=== PATIENT | male | born 1955 | race Caucasian/White ===

== ENCOUNTER 2020-05-18 09:52 | Outpatient (CLI) | payer MEDICARE ==
--- NOTE | 2020-05-18 11:31 | RAD ---
EXAM: XR Cerv Sp Ap Lat STANDARD DATE: 05/18/2020 10:00 AM INDICATION: Cervicalgia COMPARISON: None. FINDING: The cervical spinal the lateral projection is evaluated up to T1. There is mild disc degene rative disease most pronounced at C4-5, C5-6 and C6-7. There is mild facet osteoarthrosis at C4-5 through C7-T1. The prevertebral soft tissues are normal appearing. No acute fracture is evident. Lung apices are clear. IMPRESSION:Mild cervical spondylosis.
== END 2020-05-18 09:53 | disposition home or self-care (01) ==
LOC: SJX 09:52
PROVIDERS: ATTEND Family Medicine
DX: M54.2 Cervicalgia (principal); M47.812 Spondylosis without myelopathy or radiculopathy, cervical region
CPT/HCPCS: 72040

== ENCOUNTER 2020-05-29 14:46 | Inpatient (IN) | payer MEDICARE, OTHER ==
[2020-05-29 17:15] LABS: #Eosinphils 0.2 thou/uL (0.0-0.7); #Lymphocytes 2.3 thou/uL (1.20-3.40); #Monocytes 1.1 thou/uL (0.11-0.59); #Neutrophils 6.9 thou/uL (1.40-6.50); %Basophils 0.4 % (0.0-1.0); %Eosinophils 1.8 % (0.0-10.0); %Lymphocytes 21.6 % (21.0-51.0); %Monocytes 10.7 % (0.0-10.0); %Neutrophils 65.5 % (42.0-75.0); Hemoglobin 16.6 g/dL (14.0-18.0); Mean Corpuscular HGB CONC 34.1 g/dL (32.0-36.0); Mean Corpuscular Volume 96.9 fL (78.0-98.0); Platelet Count 340 thou/uL (130-400); RBC Distribution Width 11.8 % (11.5-14.5); Red Blood Cell (RBC) Count 5.02 mill/uL (4.70-6.10); White Blood Cell (WBC) Count 10.5 thou/uL (4.8-10.8)
[2020-05-29 17:25] LABS: INR-International Normal Ratio 0.9; PTT 26.4 sec (22.9-36.1); Prothrombin Time 12.3 sec (12.0-14.7)
--- NOTE | 2020-05-29 17:31 | CT ---
CT Brain WO Con: 05/29/2020 5:19 PM CLINICAL HISTORY: Right-sided numbness since Friday night; no history of CVA. IMAGING TECHNIQUE: Multiple CT images were obtained of the brain without IV contrast. COMPARISON: None. FINDINGS: Mild motion artifact slightly limits image detail. BRAIN: Evidence of acute infarct: None. Evidence of chronic ischemic change:There is mild chronic small vessel white matter ischemic change. There is a suspected remote lacunar infarct involving the left frontal subcortical white matter image 18 of series 12. This cannot be further characterize. Evidence of intracranial hemorrhage: None. Evidence of midline shift: Third ventricle and septum pellucidum are midline. Ventricles: Normal. No hydrocephalus. SKULL: Intact. VISUALIZED PARANASAL SINUSES: Clear. MASTOID AIR CELLS: Clear. EXTRACRANIAL SOFT TISSUES: Normal. IMPRESSION: 1. No definite acute intracranial abnormality. 2. Mild chronic small vessel white matter ischemic change. Small subcentimeter hypodensity within the subcortical white matter of the left frontal lobe is likely reflective of a remote lacunar infarct. Small intraparenchymal primary brain lesion cannot be entirely excluded. A nonemergent follo w-up MRI of the brain with and without contrast would be helpful for improved characterization.
[2020-05-29 17:42] LABS: ALT (SGPT) 19 U/L (8-55); AST (SGOT) 26 U/L (5-34); Albumin 4.2 g/dL (3.4-4.8); Alkaline Phosphatase 90 U/L (40-110); Anion Gap 13 mmol/L (10-20); BUN (Urea Nitrogen) 30 mg/dL (8.4-25.7); Bilirubin, Total 0.5 mg/dL (0.2-1.2); Calc. Creatinine Clearance 0 mL/min (70-130); Calcium 9.7 mg/dL (7.8-10.44); Carbon Dioxide 26 mmol/L (23-31); Chloride 104 mmol/L (98-107); Estimated GFR-MDRD 62; Globulin 3.4 g/dL (2.4-3.5); Glucose 73 mg/dL (80-115); Potassium 4.2 mmol/L (3.5-5.1); Protein, Total 7.6 g/dL (5.8-8.1); Sodium 139 mmol/L (136-145)
[2020-05-29] MEDS ORDERED: Aspirin Chewable 81 MG TAB ONE (18:47)
[2020-05-29] MEDS ORDERED: Acetaminophen 325 MG TAB PO PRN (20:28)
[2020-05-29] MEDS ORDERED: Ondansetron ODT 4 MG TAB PO PRN (20:28)
[2020-05-29] MEDS ORDERED: Ondansetron PF 4 MG/2 ML Vial IVP PRN (20:28)
--- NOTE | 2020-05-29 20:28 | PDOC.FPRHP ---
- History of Present Illness Chief Complaint: Numbness History of Present Illness: Patient is a 64 yo male with PMH of HTN and neck pain who presents to the ED after being sent over by his physician's office for an abnormal EKG. The patient is unsure of the EKG abnormality but reports numbness of the right side of his body that began yesterday morning (05/28). He reports that he woke up with tingling and decreased sensation to his right arm and leg. He also noted difficulty swallowing and slowed speech which have since resolved. Reports some weakness of the right side but attributes it to decreased sensation. He denies any history of CVA. Reports headache due to neck pain that is unchanged since onset of symptoms. ED Course: Aspirin 325 mg - Allergies/Adverse Reactions Allergies Allergy/AdvReac Type Severity Reaction Status Date / Time codeine Allergy Verified 05/30/20 02:01 - Home Medications Medication Instructions Recorded Confirmed Type Diclofenac Sodium 50 mg PO TID 05/30/20 05/30/20 History Hydrochlorothiazide 12.5 mg PO DAILY 05/30/20 05/30/20 History Lisinopril 20 mg PO DAILY 05/30/20 05/30/20 History - History PMHx: HTN, neck pain PSHx: kidney stones, knee sx FHx: denies family history of CVA, CAD, HTN, DM Social: denies t/d use. Reports 1 beer/month. Semi-retired - Review of Systems General: denies: fever/chills, fatigue Eyes: reports: vision changes ENT: denies: nasal congestion, rhinorrhea Respiratory: denies: cough, congestion Cardiovascular: denies: chest pain, palpitation, edema Gastrointestinal: denies: nausea, vomiting, diarrhea, constipation Genitourinary: denies: incontinence, dysuria Skin: reports: lesions. denies: rashes Musculoskeletal: reports: pain. denies: swelling Neurological: reports: numbness, weakness. denies: syncope, seizure Psychological: denies: anxiety, depression - Vital signs BP: 166/119 HR: 71 RR: 15 Tmax: 98.6 Pox: 97% on RA - Physical Exam Constitutional: NAD, awake, alert and oriented HEENT: normocephalic and atraumatic, EOMI, grossly normal vision, grossly normal hearing, MMM Neck: supple, FROM Heart: RRR, normal S1/S2, no murmurs/rubs/gallops Lungs: CTAB, no respiratory distress, good air movement Abdomen: soft, non-tender, bowel sounds present, no masses/distention Musculoskeletal: normal structure, normal tone, ROM grossly normal Neurological: CN II-XII intact -Neurological: Hypoesthesia of right side including f/a/l; strength appears normal Skin: no rash/lesions, no jaundice Heme/Lymphatic: no unusual bruising or bleeding, no purpura, no petechia Psychiatric: normal mood and affect, good judgment and insight, intact recent and remote memory FMR H&P: Results - Labs Result Diagrams: 05/30/20 04:52 05/30/20 04:52 Lab results: WBC 10.5 thou/uL (4.8-10.8) 05/29/20 16:48 Hgb 16.6 g/dL (14.0-18.0) 05/29/20 16:48 Hct 48.7 % (42.0-52.0) 05/29/20 16:48 MCV 96.9 fL (78.0-98.0) 05/29/20 16:48 Plt Count 340 thou/uL (130-400) 05/29/20 16:48 Neutrophils % 65.5 % (42.0-75.0) 05/29/20 16:48 Sodium 139 mmol/L (136-145) 05/29/20 16:48 Potassium 4.2 mmol/L (3.5-5.1) 05/29/20 16:48 Chloride 104 mmol/L (98-107) 05/29/20 16:48 Carbon Dioxide 26 mmol/L (23-31) 05/29/20 16:48 BUN 30 mg/dL (8.4-25.7) H 05/29/20 16:48 Creatinine 1.18 mg/dL (0.7-1.3) 05/29/20 16:48 Glucose 73 mg/dL (80-115) L 05/29/20 16:48 Calcium 9.7 mg/dL (7.8-10.44) 05/29/20 16:48 Total Bilirubin 0.5 mg/dL (0.2-1.2) 05/29/20 16:48 AST 26 U/L (5-34) 05/29/20 16:48 ALT 19 U/L (8-55) 05/29/20 16:48 Alkaline Phosphatase 90 U/L (40-110) 05/29/20 16:48 Serum Total Protein 7.6 g/dL (5.8-8.1) 05/29/20 16:48 Albumin 4.2 g/dL (3.4-4.8) 05/29/20 16:48 - EKG Interpretation EKG: Normal sinus rhythm in 80s - Radiology Interpretation CT scan - head Status: report reviewed by me Additional comment: 1. no definite acute intracranial abnormality 2. mild chronic small vessel white matter ischemic change. Small subcentimeter hypodensity within the subcortical white matter of the left frontal lobe likely reflective of a remote lacunar infarct. Small intraparenchymal primary brain lesion cannot be entirely excluded. A nonemergent f/u MRI of brain with and without contrast would be helpful . FMR H&P: A/P - Problem List (1) CVA (cerebral vascular accident) Current Visit: Yes Status: Acute Code(s): I63.9 - CEREBRAL INFARCTION, U NSPECIFIED (2) Hypertension Current Visit: No Status: Chronic Code(s): I10 - ESSENTIAL (PRIMARY) HYPERTE NSION - Plan Likely ischemic stroke - CT: no definite acute intracranial abnormality, remote lacunar infarct. Small intraparenchymal primary brain lesion cannot be entirely excluded (recommended MRI with and without contrast) - outside of window for tpa - s/p 325 mg of aspirin in ED, will continue 81 mg - will add rosuvastatin 40 mg daily - will obtain mag, phos, TSH, A1C, fasting lipid panel - will obtain MRI W/WO due to above recommendation from CT scan to improve characterization of possibly primary brain lesion - CTA head/neck ordered - PT/OT consulted - will allow for permissive HTN tonight and restart home BP medication tomorrow since it will be >48 hrs after onset of symptoms at that time - consider consulting neurology pending MRI results HTN - allow for permissive HTN tonight - will restart home BP meds of lisinopril and HCTZ tomorrow morning (>48hrs after onset of symptoms) Neck pain - start home diclofenac PCP: Dr. Neff Code: Full PPx: Lovenox Diet: HH Dispo: will admit to stroke unit for further observation; likely LOS < 48 hrs FMR H&P: Upper Level - Plan Date/Time: 05/29/202026 ITeo DO, have evaluated this patient and agree with findings/plan as outlined by news intern resident. Pertinent changes/additions are listed here. This is a 64 yo male with a pmh of HTN, OA of right knee, and chronic neck pain who presents to the ER with a cc of right sided weakness and numbness. He state this started yesterday morning. He states that his symptoms have improved somew hat since the onset. He also reports that he has a history of chronic neck pain that he has been taking NSAIDs for relief. He initially thought his symptoms may be related to his neck, however the longer they went on, the more concerned he was. He was seen at his PCP's clinic and was told to come to the ER based on his symptoms. He also reports an associated dysarthria and cheek numbness described like when you go to the dentist. In regards to his blood pressure, he states it has been worsening over the last few weeks and he was recently started on an addition BP medication, HCTZ. Objective: Vitals: BP 172/114, HR 64, RR 15, Temp 98.0, SpO2 97% RA, Wt 85 kg General: NAD HEENT: AT/NC, PERRLA Cardio: RRR, no murmurs Lung: CTAB Extremities: Pulses present Abdomen: Soft, non-tender, BS+ Neuro: CN II-XII grossly intact, Strength is 5/5 globally with sight decrease on the right compared to the left, mild decrease speed in cerebellar testing on the right, decreased sensation on the right extremities A/P Presumptive ischemic CVA -Admit to stroke -CT brain negative for acute stroke -EKG shows NSR, will monitor on TELE -Consult PT/OT/ST -MRI in the AM with CTA, no indication for TTE at this time -S/P aspirin, starting rosuvisatin at this time HTN -Allow for permissive HTN until the AM -Will restarted BP medications at that time Chronic neck pain -Continue NSAID for pain relief Code: Full Prophylaxis: Lovenox Family: at beside Fluids: SL Diet: HH Disposition: DC in 1-2 days PCP: Dr. Neff Addendum - Attending - Attending Attestation Date/Time: 05/30/20 4200 I personally evaluated the patient and discussed the management with the team. I agree with the History, Examination, Assessment and Plan documented above with any addition or exceptions noted below.
[2020-05-29] MEDS ORDERED: Atorvastatin Calcium 40 MG TAB PO SCH (21:00)
[2020-05-29] MEDS ORDERED: Rosuvastatin 20 MG TAB PO SCH (22:00)
[2020-05-29 22:16] LABS: Hemoglobin A1c 4.7 % (4.0-6.0); Magnesium 2.4 mg/dL (1.6-2.6); Phosphorus 5.1 mg/dL (2.3-4.7)
[2020-05-30 02:08] VITALS: BMI 29.0
[2020-05-30 05:02] LABS: #Basophils 0.1 thou/uL (0.0-0.2); #Eosinphils 0.3 thou/uL (0.0-0.7); #Lymphocytes 2.7 thou/uL (1.20-3.40); #Monocytes 0.8 thou/uL (0.11-0.59); #Neutrophils 5.3 thou/uL (1.40-6.50); %Basophils 0.6 % (0.0-1.0); %Eosinophils 2.8 % (0.0-10.0); %Lymphocytes 29.3 % (21.0-51.0); %Neutrophils 58.4 % (42.0-75.0); Hemoglobin 15.2 g/dL (14.0-18.0); Mean Corpuscular HGB CONC 33.4 g/dL (32.0-36.0); Mean Corpuscular Hemoglobin 32.4 pg (27.0-31.0); Mean Corpuscular Volume 97.1 fL (78.0-98.0); Mean Platelet Volume 7.6 fL (7.4-10.4); Platelet Count 296 thou/uL (130-400); RBC Distribution Width 11.8 % (11.5-14.5); Red Blood Cell (RBC) Count 4.69 mill/uL (4.70-6.10); White Blood Cell (WBC) Count 9.1 thou/uL (4.8-10.8)
[2020-05-30 05:26] LABS: Anion Gap 11 mmol/L (10-20); BUN (Urea Nitrogen) 24 mg/dL (8.4-25.7); Calc. Creatinine Clearance 83 mL/min (70-130); Calcium 8.8 mg/dL (7.8-10.44); Carbon Dioxide 27 mmol/L (23-31); Cardiac Risk 4.2 (Less than 4.5); Chloride 105 mmol/L (98-107); Cholesterol 181 mg/dl (< 200 Desired); Estimated GFR-MDRD 68; Glucose 98 mg/dL (80-115); HDL Cholesterol 43 mg/dL (>60 Neg Risk); LDL Cholesterol, Calculated 117 mg/dL; Potassium 4.3 mmol/L (3.5-5.1); Sodium 139 mmol/L (136-145); Triglycerides 106 mg/dL (Less than 150)
--- NOTE | 2020-05-30 06:21 | PDOC.FM ---
- Subjective Subjective: Mr. Pan is doing well this morning. He states he had just gotten up to go to the bathroom which exacerbated his R sided numbness. He says the numbness goes away when he sits still but comes back when he moves. Overall, he says the numbness is not worse than when it started. He denies difficulty ambulating as a result of the R LE numbness. He denies STERN, vision changes, N/V/D, new or worsening numbness, any weakness, SOB, CP, rash, swelling. He has no complaints at this time and understands that we are waiting on head imaging results to determine the next step(s). - Objective Vital Signs & Weight: Vital Signs (12 hours) Temp Pulse Resp BP Pulse Ox 05/30/20 03:00 98.2 F 62 18 97 05/30/20 01:08 98 F 66 16 178/112 H 97 Weight Weight 86.727 kg Result Diagrams: 05/30/20 04:52 05/30/20 04:52 Radiology: CT on arrival showed remote lacunar infarct with a primary intraparenchymal lesion. CTA head/neck has been obtained but the official read is pending. Brain MRI is also pending. 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 5/5 strength b/l UE and LE Psychiatric: normal affect, A&O x 3 Skin: no rash Dx/Plan - Plan Plan: Likely ischemic stroke - CT: no definite acute intracranial abnormality, remote lacunar infarct. Small intraparenchymal primary brain lesion cannot be entirely excluded (recommended M RI with and without contrast) - outside of window for tpa - ASA 81 mg, Rosuvastatin 40 mg daily - Mg, Phos, fasting lipid panel, TSH, A1c all nml - CTA head/neck obtained, read pending - MRI W/WO ordered - PT/OT consulted - Bedside swallow passed, therefore HH diet - Restarted home BP medication Monitor BP - Consider specialist consult pending imaging results HTN - Restarted home BP meds of lisinopril and HCTZ this morning since >48hrs after onset of symptoms - Monitor BP Neck pain - start home diclofenac PCP: Dr. Neff Code: Full DVT PPx: Lovenox Diet: HH Dispo: will admit to stroke unit for further observation; likely LOS < 48 hrs
--- NOTE | 2020-05-30 07:21 | CT ---
CTA OF THE NECK WITH IV CONTRAST AND 3D REFORMATTED IMAGING: INDICATION: History of increasing right-sided numbness and numbness to the tongue, right arm, and right leg that has worsened throughout the day with associated dizziness. COMPARISON: Noncontrast CT of the brain dated 05/29/2020. FINDINGS: There is a focal fusiform aneurysm protruding off the medial margin of the distal left cervical ICA o n image 169 of series 2 measuring 4.0 mm, and on image 57 of the coronal reformats measuring 4.8 mm. There is no evidence of a dissection flap. No luminal caliber irregularity is evident. There is wall thickening of the left distal ICA to the skull base. The left common carotid artery is widely patent. Left subclavian artery is widely patent. Right subclavian artery is patent. Right common carotid art brian is patent. The right internal carotid artery is patent. The right vertebral artery is dominant. T he left vertebral artery is diminutive and terminates in PICA. Aerodigestive tract is unremarkable ap pearing. Lung apices are clear. No pathologically enlarged lymph nodes are evident. Right submandibul ar gland is not visualized and may be atrophic. Parotid glands are normal appearing. Visualized thyro id gland is normal appearing. There is mild spondylosis of the cervical spine. CTA OF THE HEAD UTILIZING IV CONTRAST AND 3D REFORMATTED IMAGING: INDICATION: History of right-sided numbness and numbness to the tongue, right arm, and right leg. COMPARISON: Noncontrast CT of the brain dated 05/29/2020 at 1724 hours. FINDINGS: There is some mild ectasia of the cavernous and supraclinoid ICAs. No intraluminal filling defect is evident. The MCAs and ACAs are patent. The posterior communicating, anterior communicating, and lock plater are patent. The basilar artery is patent. The left vertebral artery terminates at PICA. No abnormal e nhancement is demonstrated. Small hypodensity within subcortical white matter left frontal lobe does not demonstrate any enhancement and may reflect a small subacute to remote lacunar infarction. IMPRESSION: 1. 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 2. Ectasia of the cavernous and supraclinoid ICAs. 3. Diminutive left vertebral artery that terminates at the left PICA. Findings discussed with Dr. Ivet Walsh at 0129 hours on 05/30/2020. CODE CR. POS: CELENA
[2020-05-30] MEDS: Enoxaparin Sodium 40 MG/0.4 ML SYRINGE SC SCH (08:16)
[2020-05-30] MEDS: Aspirin 81 mg Enteric Coated Tablet PO SCH (08:16)
[2020-05-30] MEDS: Diclofenac Sodium 50 MG DR TAB PO SCH ×3 (08:16→21:57)
[2020-05-30] MEDS: Hydrochlorothiazide 25 MG TAB PO SCH (08:16)
[2020-05-30] MEDS: Lisinopril 20 MG TAB PO SCH (08:16)
[2020-05-30] MEDS ORDERED: Iopamidol 370 76% 100 ML VIAL ONE (08:54)
--- NOTE | 2020-05-30 08:54 | MRI ---
MRI of thebrain: 05/30/2020 COMPARISON:None available HISTORY:Acute stroke symptoms, right-sided numbness TECHNIQUE: Multiplanar multisequence MR imaging of thebrain without contrast Findings:The diffusion weighted imaging demonstrates no evidence for acute infarction. The axial gradient echo imaging demonstrates no evidence for intracranial hemorrhage. There is minimal mucosal thickening involving the maxillary sinus on the left. The visualized paranas al sinuses and mastoid air cells are otherwise unremarkable. The distal vertebral artery on the left is hypoplastic. There is fusiform dilation involving the cave rnous and supraclinoid ICA bilaterally. Regional bone marrow signal intensity appears within normal limits. There are scattered foci of increased T2 and FLAIR signal within the white matter, evidence of small vessel disease. No midline shift, mass effect, or ventricular enlargement noted. IMPRESSION: No evidence for acute infarction. Fusiform dilation of the cavernous carotid arteries and supraclinoid ICA. Question a history of a connective tissue disorder.
[2020-05-30 11:42] LABS: SARS-CoV-2 MS2 Positive; SARS-CoV-2 N Gene Negative; SARS-CoV-2 S Gene Negative; SARS-CoV-2 by NAA Not Detected (NotDetected); SARS-CoV-2 orf1ab Negative
[2020-05-30] MEDS ORDERED: Rosuvastatin 20 MG TAB PO SCH (21:00)
[2020-05-30] MEDS ORDERED: FLU VACC QS2020-21(65YR UP)/PF 240 MCG/0.7 ML SYRINGE IM ONE (21:00)
[2020-05-31 04:40] LABS: #Basophils 0.1 thou/uL (0.0-0.2); #Eosinphils 0.2 thou/uL (0.0-0.7); #Lymphocytes 2.6 thou/uL (1.20-3.40); #Monocytes 0.9 thou/uL (0.11-0.59); #Neutrophils 6.2 thou/uL (1.40-6.50); %Basophils 0.9 % (0.0-1.0); %Eosinophils 2.3 % (0.0-10.0); %Lymphocytes 26.2 % (21.0-51.0); %Monocytes 9.2 % (0.0-10.0); %Neutrophils 61.5 % (42.0-75.0); Hemoglobin 15.8 g/dL (14.0-18.0); Mean Corpuscular HGB CONC 34.4 g/dL (32.0-36.0); Mean Corpuscular Hemoglobin 33.9 pg (27.0-31.0); Mean Corpuscular Volume 98.5 fL (78.0-98.0); Mean Platelet Volume 7.5 fL (7.4-10.4); Platelet Count 293 thou/uL (130-400); RBC Distribution Width 11.9 % (11.5-14.5); Red Blood Cell (RBC) Count 4.66 mill/uL (4.70-6.10)
[2020-05-31 05:02] LABS: Anion Gap 13 mmol/L (10-20); BUN (Urea Nitrogen) 26 mg/dL (8.4-25.7); Calc. Creatinine Clearance 77 mL/min (70-130); Carbon Dioxide 25 mmol/L (23-31); Chloride 102 mmol/L (98-107); Estimated GFR-MDRD 63; Glucose 92 mg/dL (80-115); Sodium 136 mmol/L (136-145)
--- NOTE | 2020-05-31 05:31 | PDOC.FM ---
- Subjective Subjective: Mr. Pan is doing well this morning and has no new complaints. He continues to endorse R sided UE, LE, facial numbness. He continues to deny weakness or development of any new sxs. I have explained the results of his CTA and the recommendations from neurosurgery. I also explained Dr. Renner will come by and see him today and we will follow her lead. He understands and is agreeable to this plan. - Objective Vital Signs & Weight: Vital Signs (12 hours) Temp Pulse Resp BP Pulse Ox 05/30/20 21:55 97 05/30/20 19:20 98.0 F 62 13 162/104 H 97 Weight Weight 86.727 kg I&O: 05/29/20 05/30/20 05/31/20 06:59 06:59 06:59 Intake Total 160 900 Balance 160 900 Result Diagrams: 05/31/20 04:26 05/31/20 04:26 Phys Exam - Physical Examination Constitutional: NAD (Sleeping comfortable, easily arousable) No R sided facial droop. Tongue midline, full b/l movement Neck: supple, full ROM Respiratory: no wheezing, no rales, clear to auscultation bilateral Cardiovascular: RRR, no significant murmur Tele shows NSR w depressed ST, unchanged Gastrointestinal: non-tender, no distention Musculoskeletal: no edema, pulses present Neurological: moves all 4 limbs R sided numbness, unchanged Psychiatric: normal affect, A&O x 3 Skin: no rash Dx/Plan - Plan Plan: Likely ischemic stroke - Outside of window for tpa, ASA 81 mg, Rosuvastatin 40 mg daily - Mg, Phos, fasting lipid panel, TSH, A1c all nml - CTA showed anuerysm, consulted neurosurgery. It also showed dilation of vessels that could be congenital v connective tissure disorder - MRI supported the above findings but showed no ischemia - Neurosurg, Dr. Funk, consulted Recommended consulting neuro and if they think aneurysm is causing TIAs to consult Dr. Rodrigues - Neuro consulted, Dr. Renner will see him today. Appreciate recs - PT signed off. OT eval pending HTN - Monitor BP - Will increase BP management today d/t continued high SBP Neck pain - start home diclofenac PCP: Dr. Neff Code: Full DVT PPx: Lovenox Diet: HH Dispo: will admit to stroke unit for further observation; LOS/discharge will pen neurology eval and recs
[2020-05-31] MEDS: Aspirin 81 mg Enteric Coated Tablet PO SCH (08:27)
[2020-05-31] MEDS: Hydrochlorothiazide 25 MG TAB PO SCH (08:27)
[2020-05-31] MEDS: Diclofenac Sodium 50 MG DR TAB PO SCH (08:27)
[2020-05-31] MEDS: Enoxaparin Sodium 40 MG/0.4 ML SYRINGE SC SCH (08:27)
[2020-05-31] MEDS: Lisinopril 20 MG TAB PO SCH (08:28)
[2020-05-31] MEDS ORDERED: Lisinopril 20 MG TAB PO SCH ×2 (09:45→10:00)
[2020-05-31 12:02] VITALS: BP 145/99; TEMP 97.9
--- NOTE | 2020-05-31 14:14 | CON ---
NEUROLOGY CONSULTATION DATE OF CONSULTATION: 05/31/2020 REASON FOR CONSULTATION: Right-sided numbness. HISTORY OF PRESENT ILLNESS: Mr. Pan is a 64-year-old male with history significant for hypertension and neck pain, presented to the emergency room after being sent by his primary care office because of abnormal EKG. The patient is unsure of the EKG abnormality, but reported numbness on the right side of his body, which began on 05/18. The patient describes the numbness as persistent numbness on the right side of the face, right side of the tongue, and right leg and arm, which is persistent, with no associated weakness. However, the patient feels dizzy whenever he tries to walk and the numbness also increased during that time. He also had some problem with swallowing and slurred speech, which has been resolved. The patient also reports headache and neck pain, which is also persistent. The patient denies nausea, vomiting, chest pain, or abdominal pain problems. He does have difficulty swallowing and slurred speech, which has been resolved. He denies weakness, but does have focal paresthesias on the right. He was given aspirin in the emergency room and was admitted on 05/29/2020 for further evaluation. ALLERGIES: CODEINE. HOME MEDICATIONS: 1. Diclofenac sodium 50 mg p.o. b.i.d. 2. Hydrochlorothiazide 3. Lisinopril 20 mg daily. PAST MEDICAL HISTORY: Hypertension and neck pain. PAST SURGICAL HISTORY: Kidney stone removal and knee surgery. FAMILY HISTORY: No family history of CVA, coronary artery disease, hypertension, or diabetes mellitus. SOCIAL HISTORY: The patient denies tobacco and illegal drug use. He drinks one beer per month. He is semi retired. REVIEW OF SYSTEMS: General: denies: fever/chills, fatigue Eyes: reports: vision changes ENT: denies: nasal congestion, rhinorrhea Respiratory: denies: cough, congestion Cardiovascular: denies: chest pain, palpitation, edema Gastrointestinal: denies: nausea, vomiting, diarrhea, constipation Genitourinary: denies: incontinence, dysuria Skin: reports: lesions. denies: rashes Musculoskeletal: reports: pain. denies: swelling Neurological: reports: numbness, weakness. denies: syncope, seizure Psychological: denies: anxiety, depression Vital Signs & Weight: Vital Signs (12 hours) Temp Pulse Resp BP Pulse Ox 05/30/20 21:55 97 05/30/20 19:20 98.0 F 62 13 162/104 H 97 Weight Weight 86.727 kg I&O: 05/29/20 05/30/20 05/31/20 06:59 06:59 06:59 Intake Total 160 900 Balance 160 900 PHYSICAL EXAMINATION: Constitutional: NAD, awake, alert and oriented HEENT: normocephalic and atraumatic, EOMI, grossly normal vision, grossly normal hearing, MMM Neck: supple, FROM Heart: RRR, normal S1/S2, no murmurs/rubs/gallops Lungs: CTAB, no respiratory distress, good air movement Abdomen: soft, non-tender, bowel sounds present, no masses/distention Musculoskeletal: normal structure, normal tone, ROM grossly normal Neurological: Mental status, the patient is alert and oriented to person, place, and time. Speech is clear. Recent and remote memory intact. Fund of knowledge is appropriate. Cranial nerves 2 through 12 intact except 5, decreased sensation to light touch in the V1, V2, V3 distribution and 9 decreased sensation on the right side of the tongue. Motor muscle tone and bulk are normal. Strength 5/5 bilaterally. Sensory, decreased sensation to light touch and pinprick in the left upper and lower extremities. Cerebellar, finger-nose testing intact. Gait deferred due to patient's safety reasons. DATA REVIEWED: I reviewed the labs, which were essentially unremarkable. Telemetry is unremarkable since admission. Head CT did not reveal any acute intracranial pathology. Lab results: WBC 10.5 thou/uL (4.8-10.8) 05/29/20 16:48 Hgb 16.6 g/dL (14.0-18.0) 05/29/20 16:48 Hct 48.7 % (42.0-52.0) 05/29/20 16:48 MCV 96.9 fL (78.0-98.0) 05/29/20 16:48 Plt Count 340 thou/uL (130-400) 05/29/20 16:48 Neutrophils % 65.5 % (42.0-75.0) 05/29/20 16:48 Sodium 139 mmol/L (136-145) 05/29/20 16:48 Potassium 4.2 mmol/L (3.5-5.1) 05/29/20 16:48 Chloride 104 mmol/L (98-107) 05/29/20 16:48 Carbon Dioxide 26 mmol/L (23-31) 05/29/20 16:48 BUN 30 mg/dL (8.4-25.7) H 05/29/20 16:48 Creatinine 1.18 mg/dL (0.7-1.3) 05/29/20 16:48 Glucose 73 mg/dL (80-115) L 05/29/20 16:48 Calcium 9.7 mg/dL (7.8-10.44) 05/29/20 16:48 Total Bilirubin 0.5 mg/dL (0.2-1.2) 05/29/20 16:48 AST 26 U/L (5-34) 05/29/20 16:48 ALT 19 U/L (8-55) 05/29/20 16:48 Alkaline Phosphatase 90 U/L (40-110) 05/29/20 16:48 Serum Total Protein 7.6 g/dL (5.8-8.1) 05/29/20 16:48 Albumin 4.2 g/dL (3.4-4.8) 05/29/20 16:48 - EKG Interpretation EKG: Normal sinus rhythm in 80s - Radiology Interpretation CT scan - head Status: report reviewed by me Additional comment: 1. no definite acute intracranial abnormality ASSESSMENT AND PLAN: Mr. Pan is a 64-year-old male presented with focal paresthesias of the right upper and lower extremity and right side of the face and the tongue. MRI of the brain reviewed and was negative for acute intracranial pathology. CTA showed aneurysm in the distal left cervical ICA . This is a rare presentation, but it has been seen in some patients the left internal carotid artery aneurysm can cause dizziness and focal paresthesias, consider Neurosurgery input. Strict control of blood pressure and blood glucose. Continue aspirin and high-intensity statin for secondary stroke prevention. Neuro checks every 4 hours. Continue home medication. Telemetry showed normal sinus rhythm, consider contacting PCP office regarding the EKG abnormality. Continue medical management per primary team. Continue strict control of blood pressure and blood glucose. Continue medical management per primary team, PT/OT. Thank you for the consult. Plan discussed in detail with the primary team and during MDR rounds. Job ID: [id number] [facility]ENTERAfia
[2020-06-01] MEDS ORDERED: Lisinopril 20 MG TAB PO SCH (09:00)
--- NOTE | 2020-06-01 15:09 | DIS ---
DATE OF ADMISSION: 05/30/2020 DATE OF DISCHARGE: 05/31/2020 RESIDENT: ANGIE BEST MD. ADMITTING ATTENDING: Rashad Campbell MD. DISCHARGE ATTENDING: Bertram Fernandez MD. CONSULTS: 1. Neurosurgery, (Dr. Funk) 05/30/2020. 2. Neurology (Dr. Renner) 05/30/2020. PROCEDURES: None. PRIMARY DIAGNOSES: 1. 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 2. Cerebrovascular accident, rule out. SECONDARY DIAGNOSES: 1. Hypertension. 2. Chronic neck pain. 3. 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 DISCHARGE MEDICATIONS: New medications: 1. Rosuvastatin 40 mg p.o. at bedtime. 2. Aspirin 81 mg p.o. daily. 3. Lisinopril 40 mg p.o. daily, increased from previous dose. Continued medications: 1. HCTZ 12.5 mg p.o. daily. 2. Diclofenac 50 mg p.o. t.i.d. Discontinued medications: Lisinopril 20 mg p.o. daily. HISTORY OF PRESENT ILLNESS/HOSPITAL COURSE: This is a 64-year-old male who presented to the ED after being sent by his physician's office for an abnormal EKG. He reported numbness of the right side of his body including his arm, leg, and inside his mouth that started on 05/28/2020. He reports that he woke up with tingling and decreased sensation and noted difficulty swallowing and slurred speech, the last two of which had resolved. He denied right-sided weakness and previous history of CVA or blood clot. CT showed a remote lacunar infarct. CTA showed a focal fusiform aneurysm in the distal left cervical ICA, as well as ectasia of cavernous and supraclinoid ICAs and diminutive left vertebral artery terminating at left PICA. MRI confirmed these findings and showed no ischemic changes. He was outside the window for tPA. He was started on rosuvastatin. Magnesium, phosphorus, TSH, A1c, fasting lipid panel all normal. PT, OT consulted and signed off. Neurosurgery was consulted, who felt the second and the third findings of the CTA were congenital, and they were only concerned about the aneurysm. They recommended consulting Neurology and if Neurology was concerned about the aneurysm causing TIAs, recommended that we consult Dr. Rodrigues. Neurology was consult and felt this required outpatient followup. During his stay, the patient's blood pressures were poorly controlled with systolics regularly in the 150s to 170s despite being on his home medications, so his lisinopril dose was increased. The patient was on the stroke unit, such that he was hooked up to tele. Telemetry consistently showed normal sinus rhythm with a mildly depressed STs, but there were no other concerning characteristics. DISPOSITION: Stable. DISCHARGE INSTRUCTIONS: 1. Location: Home. 2. Diet: Heart healthy. 3. Activity: As tolerated. 4. Followup: The patient is recommended to follow up with PCP, Dr. Neff, within 7-10 days. He is also recommended to follow up with neurosurgeon, Dr. Rodrigues, in the outpatient setting for continued evaluation and possible treatment. Job ID: [id number]
[2020-06-02 14:54] LABS: ANA Symphony (Qualitative) Negative (Negative); ANA Symphony (Quantitative) 0.1 Ratio (< 0.7 Negative); dsDNA IgG Antibody Less than 0.5 IU/mL (<10 Negative)
== END 2020-05-31 15:22 | disposition home or self-care (01) | DRG 93 ==
LOC: ERS 14:46 → 2SE 20:40 → OBSVTOIN 05-30 16:46
PROVIDERS: ADMIT Emergency Medicine; ATTEND Emergency Medicine
DX: I67.1 Cerebral aneurysm, nonruptured (principal); I10 Essential (primary) hypertension; Z20.828 Contact with and (suspected) exposure to other viral communicable diseases; G89.29 Other chronic pain; M54.2 Cervicalgia; I77.89 Other specified disorders of arteries and arterioles; D18.02 Hemangioma of intracranial structures; Z88.5 Allergy status to narcotic agent
CPT/HCPCS: 36415; 70450; 70496; 70498; 70551; 80048; 80053; 80061; 83036; 83735; 84100; 84443; 84484; 85025; 85610; 85652; 85730; 86038; 86140; 86225; 87635; 90471; 90662; 90732; 93005; 94760; 96372; G0008; G0009; G0378; J1650; Q9967; U0003

== ENCOUNTER 2021-08-07 10:00 | Outpatient (CLI) | payer MEDICARE | END 2021-08-07 10:01 | disposition home or self-care (01) | LOC: CT 10:00 | PROVIDERS: ATTEND Internal Medicine Medical Oncology | DX: C79.51 Secondary malignant neoplasm of bone (principal); K57.30 Diverticulosis of large intestine without perforation or abscess without bleeding; N20.0 Calculus of kidney; R91.8 Other nonspecific abnormal finding of lung field; K76.9 Liver disease, unspecified; R93.7 Abnormal findings on diagnostic imaging of other parts of musculoskeletal system | CPT/HCPCS: 71260; 74177; 78306; A9503 ==